=== PATIENT | male | born 1945 | race Caucasian/White ===

== ENCOUNTER 2021-06-21 08:00 | Emergency (ER) | payer MEDICARE, OTHER ==
[~2021-06-21] VITALS: Ht 193 cm; Wt 112.3 kg
[~2021-06-21 08:00] MED LIST: LEXA1TAB; PRIL20CA
[2021-06-21] MEDS ORDERED: LANTINJ4 SQ (08:16)
[2021-06-21] MEDS ORDERED: CIDA500T2 PO (08:16)
[2021-06-21] MEDS ORDERED: METF-838 PO (08:16)
[2021-06-21] MEDS ORDERED: CELE1CAP9 PO (08:16)
[2021-06-21] MEDS ORDERED: AMLO1TAB25 PO (08:16)
[2021-06-21] MEDS ORDERED: MULT-90 PO (08:16)
[2021-06-21] MEDS ORDERED: LEXA1TAB PO (08:16)
[2021-06-21] MEDS ORDERED: DULO1CAP5 PO (08:16)
[2021-06-21] MEDS ORDERED: LISI20TA33 PO (08:16)
[2021-06-21] MEDS ORDERED: ROSU10TA6 PO (08:16)
[2021-06-21] MEDS ORDERED: CLON-412 PO (08:16)
[2021-06-21 09:22] LABS: HEMOGLOBIN 13.8 g/dl (13.5-17.5); MEAN CORPUSCULAR HEMOGLOBIN 29.6 pg (27.0-33.0); MEAN CORPUSCULAR HGB CONC 33.7 g/dl (32.0-36.5); PLATELET COUNT, AUTOMATED 155 10^3/uL (150-450); RED BLOOD COUNT 4.66 10^6/uL (4.30-6.10)
[2021-06-21 09:23] LABS: WHITE BLOOD COUNT 10.4 10^3/uL (4.0-10.0)
[2021-06-21] MEDS ORDERED: MORPHINE 4 MG/ML 1ML VIAL/SYRINGE (J2270) IV PRN (09:40)
[2021-06-21 09:50] LABS: ALBUMIN 3.5 GM/DL (3.2-5.2); ALT/SGPT 41 U/L (12-78); BILIRUBIN,TOTAL 0.6 MG/DL (0.2-1.0); BLOOD UREA NITROGEN 14 MG/DL (7-18); CARBON DIOXIDE LEVEL 28 MEQ/L (21-32); CHLORIDE LEVEL 109 MEQ/L (98-107); CREATININE FOR GFR 1.24 MG/DL (0.70-1.30); GLOMERULAR FILTRATION RATE > 60.0 (>42); GLUCOSE, FASTING 145 MG/DL (70-100); LIPASE 131 U/L (73-393); POTASSIUM SERUM 4.4 MEQ/L (3.5-5.1); SODIUM LEVEL 144 MEQ/L (136-145); TOTAL PROTEIN 5.4 GM/DL (6.4-8.2)
[2021-06-21 09:51] LABS: ATYPICAL LYMPH 42 % (0-5); EOSINOPHILS 3 % (0-3); LYMPHOCYTES 16 % (16-44); MONOCYTES 6 % (0-5); MYELOCYTES 1 % (0-0); NEUTROPHILS 31 % (28-66)
[2021-06-21 09:53] LABS: PLATELET ESTIMATE NORMAL (NORMAL)
[2021-06-21] MEDS ORDERED: ONDANSETRON 4MG/2ML VIAL IV ONE (10:00)
[2021-06-21] MEDS: HYDROMORPHONE HCL 0.5 MG/ 0.5 ML SYRINGE (J1170 PER 1) IV PRN ×2 (10:09→11:00)
--- NOTE | 2021-06-21 11:01 | REP ---
INDICATION: flank pain. History of lymphoma. COMPARISON: CT abdomen pelvis with IV contrast, 04/19/2009 TECHNIQUE: Imaging protocol: Computed tomography of the abdomen and pelvis without IV contrast. Contiguous 3 mm thick axial projection images were obtained through the abdomen and pelvis. 2D sagittal and coronal reconstructions were performed. Radiation optimization: All CT scans at this facility use at least one of these dose optimization techniques: automated exposure control; mA and/or kV adjustment per patient size (includes targeted exams where dose is matched to clinical indication); or iterative reconstruction. FINDINGS: Heart and lung bases: There are linear scars in the middle lobe the right lung, the inferior segment of the lingula and the posterior segment of the lower lobe of the left lung. There is a calcified nodule in the lower lobe of the left lung consistent with a benign granuloma. There are no pleural effusions. The heart size is normal. There is no pericardial effusion. There is calcific vascular disease of the thoracic aorta and coronary arteries. Liver: There are findings suggestive of cirrhosis with a lobulated liver margin and enlarged caudate lobe. There is pneumobilia consistent with sphincterotomy. Gallbladder: Surgically absent. There is benign post cholecystectomy dilatation of the common bile duct measuring 11 mm. Spleen: The spleen is enlarged measuring 14.1 cm in pole to pole length. Pancreas: Normal unenhanced appearance. Adrenal glands: Normal unenhanced appearance. Kidneys/bladder: There is a 3.5 cm in diameter benign cortical cyst in the lower pole of the left kidney. There is been partial resection or tumor ablation from the lower pole of the right kidney. There has been partial ablations of a 2.6 cm (was 3.1 cm) in diameter low-density nodule in the interpolar cortex of the right kidney. There is thickening of the wall of the urinary bladder consistent with bladder outlet obstruction and or cystitis. Pelvic structures: The prostate gland measures 5.4 cm in transverse dimension. The prostate gland has a normal unenhanced appearance. There is no free fluid the pelvis. There is mild bilateral external iliac and bilateral inguinal lymphadenopathy. GI tract: There is a small hiatal hernia. There is stool throughout the colon. There are scattered colonic diverticuli without evidence of acute inflammation. The appendix is not demonstrated. Abdominal wall and mesentery: There is a subcutaneous soft tissue density mass in the right lower quadrant measuring 6.7 x 4.1 x 2.7 cm. There are multiple subcutaneous soft tissue density masses in the right buttock, the largest measuring 5.0 x 3.2 x 3.2 cm. There are multiple reactive upper abdominal, retroperitoneal and mesenteric lymph nodes. There is a 6 mm in diameter umbilical hernia containing normal fat. There is a left inguinal hernia, containing normal fat, measuring 2.4 cm in diameter. Abdominal aorta: There is calcific vascular disease of the abdominal aorta. 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 The hips are unremarkable. IMPRESSION: 1. The patient has a history of lymphoma and there has been interval (since 04/19/2009) decrease in size and number of enlarged lymph nodes and apparent resolution of nodules in the liver. However, there remain smaller but reactive appearing lymph nodes in multiple sites as described. 2. There has been interval development of soft tissue density masses in the right anterior abdominal wall and right buttock, which likely represent lymphomatous masses. 3. There is no evidence of nephrolithiasis, ureterolithiasis or hydronephrosis. 4. There has been partial resection or tumor ablations in the right kidney, as described. 5. Apparent hepatic cirrhosis. 6. Splenomegaly. 7. Other findings as noted. Incidental Findings: Subcutaneous soft tissue masses in the right lower quadrant of the abdomen and in the right buttock. The critical information above was relayed directly by me by telephone to Maria De Jesus Contreras on 06/21/2021 at 10:30 am with readback verification. <Electronically signed by Leobardo Marino > 06/21/21 0217
[2021-06-21 12:49] VITALS: BP 146/62
[2021-06-21] MEDS ORDERED: SODIUM CHLORIDE 0.9% INJ 10 ML SYR IV ONE (12:55)
--- NOTE | 2021-06-21 15:01 | ED PDOC ---
Post-Departure Follow-Up certifeid letter sent to patient reagrding radiology reports Maria De Jesus Contreras MD Jun 21, 2021 15:01
[2021-06-22] MEDS ORDERED: SODIUM CHLORIDE 0.9% INJ 10 ML SYR IV SCH (09:00)
== END 2021-06-21 13:35 | disposition home or self-care (01) ==
LOC: M ED 08:00
DX: R10.9 Unspecified abdominal pain (principal); R22.2 Localized swelling, mass and lump, trunk; E78.5 Hyperlipidemia, unspecified; E11.9 Type 2 diabetes mellitus without complications; I10 Essential (primary) hypertension; R16.1 Splenomegaly, not elsewhere classified; Z88.8 Allergy status to other drugs, medicaments and biological substances
CPT/HCPCS: 74176; 80053; 81001; 83690; 85025; 96374; 96375; 96376; 99283; J1170; J1642; J2405